=== PATIENT | female | born 1975 | race Caucasian/White ===

== ENCOUNTER → 2018-06-04 | Outpatient (CLI) | payer OTHER ==
--- NOTE | 2018-06-06 10:33 | RAD ---
DATE: 06/04/2018 EXAM: MAMMO PARAM SCREENING BILATERAL HISTORY: Routine screening COMPARISON: 05/19/2015 This study was interpreted with the benefit of Computerized Aided Detection (CAD). Breast Density: SCATTERED The breast parenchyma shows scattered fibroglandular densities. Breast parenchyma level B. FINDINGS: 2-D and 3-D tomosynthesis imaging was performed in CC and MLO projections. No new or enlarging breast densities are seen. No suspicious microcalcifications are evident. IMPRESSION: Stable mammograms without evidence of malignancy. BI-RADS CATEGORY: 1 NEGATIVE RECOMMENDED FOLLOW-UP: 12M 12 MONTH FOLLOW-UP PQRS compliance statement: Patient information was entered into a reminder system with a target due date for the next mammogram. Mammography is a sensitive method for finding small breast cancers, but it does not detect them all and is not a substitute for careful clinical examination. A negative mammogram does not negate a clinically suspicious finding and should not result in delay in biopsying a clinically suspicious abnormality. "Our facility is accredited by the [employer] Mammography Program."
== END | disposition home or self-care (01) ==
LOC: MAMMO 08:54
PROVIDERS: ATTEND Nurse Practitioner Gerontology
DX: Z12.31 Encounter for screening mammogram for malignant neoplasm of breast (principal)
CPT/HCPCS: 77063; 77067

== ENCOUNTER 2019-12-20 03:24 | Emergency (ER) | payer OTHER ==
[~2019-12-20] VITALS: Ht 172.7 cm; Wt 118.2 kg
[2019-12-20] MEDS ORDERED: UNABLE MC (03:43)
--- NOTE | 2019-12-20 03:58 | PHYS DOC ---
General Adult EDM: Chief Complaint: HIP PAIN HPI: HPI: Patient is a 44 year old female who presents with left flank pain. The patient is a 44-year-old female who reports that for many months now she has had intermittent pain in the left flank. She is attributed it to the acquisition of a car that is lower and is more difficult to get in and out of. However in the last 48 hours the patient reports that the pain is changed and that is become more frequent and severe. Patient also stated that by the time she got to the emergency department the pain had almost completely resolved. She denies any nausea, vomiting, change in urination, hematuria, pyuria fever, chills or sweats. She denied chest pain or shortness of breath. She reports she is able to eat without any difficulty and denies any nausea, vomiting, melena or hematochezia. Patient has no history of kidney stones. Review of Systems: Review of Systems: Constitutional: Denies fever or chills. [] Eyes: Denies change in visual acuity. [] HENT: Denies nasal congestion or sore throat. [] Respiratory: Denies cough or shortness of breath. [] Cardiovascular: Denies chest pain or edema. [] GI: See HPI. [] : Denies dysuria. [] Musculoskeletal: Denies back pain or joint pain. [] Integument: Denies rash. [] Neurologic: Denies headache, focal weakness or sensory changes. [] Endocrine: Denies polyuria or polydipsia. [] Lymphatic: Denies swollen glands. [] Psychiatric: Denies depression or anxiety. [] Heart Score: Risk Factors: Risk Factors: DM, Current or recent (<one month) smoker, HTN, HLP, family history of CAD, obesity. Risk Scores: Score 0 - 3: 2.5% MACE over next 6 weeks - Discharge Home Score 4 - 6: 20.3% MACE over next 6 weeks - Admit for Clinical Observation Score 7 - 10: 72.7% MACE over next 6 weeks - Early Invasive Strategies Allergies: Allergies: Allergies Coded Allergies Type Severity Reaction Last Updated Verified Penicillins Allergy Unknown "hives" 12/20/19 Yes Physical Exam: PE: Constitutional: Well developed, well nourished, no acute distress, non-toxic appearance. [] HENT: Normocephalic, atraumatic, bilateral external ears normal, oropharynx moist, no oral exudates, nose normal. [] Eyes: PERRLA, EOMI, conjunctiva normal, no discharge. [] Neck: Normal range of motion, no tenderness, supple, no stridor. [] Cardiovascular:Heart rate regular rhythm, no murmur [] Lungs & Thorax: Bilateral breath sounds clear to auscultation [] Abdomen: Bowel sounds normal, soft, tenderness of the left lower quadrant without guarding or rebound, this pain worsened with increased abdominal wall tension and reproduce the pain in the anterior portion of her abdomen, no masses, no pulsatile masses. No hepatosplenomegaly or mass, negative Mosley sign, no guarding or rebound [] Skin: Warm, dry, no erythema, no rash. [] Back: No CVA tenderness, iliolumbar muscle tenderness, left pelvic brim tenderness reproducing her pain, all dermatomes and myotomes of the lower extremities were tested and normal. [] Extremities: No tenderness, no cyanosis, no clubbing, ROM intact, no edema. [] Neurologic: Alert and oriented X 3, normal motor function, normal sensory function, no focal deficits noted. [] Psychologic: Affect normal, judgement normal, mood normal. [] EKG: EKG: [] Radiology/Procedures: Radiology/Procedures: [] Course & Med Decision Making: Course & Med Decision Making Pertinent Labs and Imaging studies reviewed. (See chart for details) 0535-the patient was seen and reexamined. Patient states that her pain has improved and is fact gone at this time. I discussed with her reasons to return, treatment plan and need for follow-up. [] Dragon Disclaimer: Dragon Disclaimer: This electronic medical record was generated, in whole or in part, using a voice recognition dictation system. Departure Departure Impression: Primary Impression: Acute left flank pain Additional Impressions: Strain of abdominal wall Qualified Codes: S39.011A - Strain of muscle, fascia and tendon of abdomen, initial encounter Repetitive strain injury of lower back Qualified Codes: S39.012A - Strain of muscle, fascia and tendon of lower back, initial encounter; X50.3XXA - Overexertion from repetitive movements, initial encounter Disposition: HOME, SELF-CARE Condition: IMPROVED Referrals: CASSANDRA BOSWELL APRN (PCP) Patient Instructions: Abdominal Pain (Nonspecific), Back Exercises, Back Injury Prevention, Back Pain, Adult Additional Instructions: Aleve 2 pills twice a day with food, walking 4 to 5 days a week with core exercises. Justicifation of Admission Dx: Justifications for Admission: Justification of Admission Dx: N/A MAO FREGOSO MD Dec 20, 2019 03:58
[2019-12-20 04:05] LABS: BILIRUBIN,URINE NEGATIVE (NEG); CLARITY,URINE CLEAR; COLOR,URINE YELLOW; NITRITE,URINE NEGATIVE (NEG); PH,URINE 6.5 (<5.0-8.0); PROTEIN,URINE NEGATIVE (NEG-TRACE); UROBILINOGEN,URINE 0.2 mg/dL (0.2 mg/dL)
[2019-12-20 04:11] LABS: BACTERIA,URINE FEW /HPF (0-FEW); RBC,URINE RARE /HPF (0-2); SQUAMOUS EPITHELIAL CELL,UR FEW /LPF; WBC,URINE RARE /HPF (0-4)
[2019-12-20] MEDS ORDERED: KETOROLAC 30 MG/ML VIAL. IVP ONE (04:15)
[2019-12-20 04:40] LABS: BASO # 0.1 x10^3/uL (0.0-0.2); BASO % 1 % (0-3); EOS # 0.2 x10^3/uL (0.0-0.7); EOS % 2 % (0-3); HEMATOCRIT 42.7 % (36.0-47.0); HEMOGLOBIN 14.5 g/dL (12.0-15.5); LYMPH # 2.1 x10^3/uL (1.0-4.8); LYMPH % 28 % (24-48); MEAN CORPUSCULAR HEMOGLOBIN 30 pg (25-35); MEAN CORPUSCULAR HGB CONC 34 g/dL (31-37); MEAN CORPUSCULAR VOLUME 90 fL (79-100); MONO # 0.6 x10^3/uL (0.0-1.1); MONO % 8 % (0-9); NEUT # 4.5 x10^3/uL (1.8-7.7); NEUT % 61 % (31-73); PLATELET COUNT 249 x10^3/uL (140-400); RED BLOOD COUNT 4.77 x10^6/uL (3.50-5.40); RED CELL DISTRIBUTION WIDTH 13.1 % (11.5-14.5); WHITE BLOOD COUNT 7.4 x10^3/uL (4.0-11.0)
[2019-12-20 04:49] LABS: CALCIUM 8.7 mg/dL (8.5-10.1); CREATININE 0.8 mg/dL (0.6-1.0); GFR 77.2; POTASSIUM 3.7 mmol/L (3.5-5.1)
[2019-12-20 06:03] VITALS: BP 143/86
== END 2019-12-20 06:05 | disposition home or self-care (01) ==
LOC: ER 03:24
DX: S39.011A Strain of muscle, fascia and tendon of abdomen, initial encounter (principal); S39.012A Strain of muscle, fascia and tendon of lower back, initial encounter; Z88.0 Allergy status to penicillin; X50.9XXA Other and unspecified overexertion or strenuous movements or postures, initial encounter; Y93.89 Activity, other specified; Y92.89 Other specified places as the place of occurrence of the external cause; Y99.8 Other external cause status
CPT/HCPCS: 36415; 80048; 81001; 81025; 85025; 96374; 99283; J1885